=== PATIENT | female | born 1945 | race Caucasian/White ===

== ENCOUNTER 2017-12-17 21:06 | Observation (INO) | payer MEDICARE ==
[~2017-12-17] VITALS: Ht 172.7 cm; Wt 114.0 kg
[~2017-12-17 21:06] MED LIST: AMOXICILLIN/PO500 MG PO; CIPROFLOXACN500 MG PO; CITALOPRAM20 MG PO; CLOPIDOGREL75 MG PO; DIPHEN/ATROP2.5 M1 PO; EXFORGE HC4 PO; GLYBURIDE2.5 MG PO; INDERAL LA120 MG PO; METFORMIN850 MG PO; NEURONTIN300 MG PO; PRAMIPEXOLE0.25 MG PO; PRILOSEC40 MG PO
--- NOTE | 2017-12-17 21:06 | NUR ---
PATIENT TO ROOM 6. UNDRESSED INTO A GOWN. PLACED ON MONITOR. TRIAGE COMPLETED AT BEDSIDE. AWAITING MD CARRILLO.
[2017-12-17] MEDS ORDERED: AMLODIPINE5 MG PO (21:32)
[2017-12-17] MEDS ORDERED: LASIX 40 MG TAB40 MG PO (21:33)
[2017-12-17] MEDS ORDERED: METO50TA52 PO (21:34)
[2017-12-17] MEDS ORDERED: METFORMIN500 M2 PO (21:36)
[2017-12-17] MEDS ORDERED: METFORMIN500 MG PO (21:36)
[2017-12-17] MEDS ORDERED: ENTRESTO 97-1031 TAB PO (21:37)
[2017-12-17] MEDS ORDERED: SERTRALINE50 MG PO (21:37)
--- NOTE | 2017-12-17 21:40 | NUR ---
SPOKE WITH JALEN AT POISON CONTROL. ALL MEDICINES REVIEWED. RECOMMEND CHARCOAL AND IVF TO START. MONITOR BLOOD SUGAR. STATES IF PATIENT BECOMES SYMPTOMATIC WITH BRADYCARDIA OR HYPOTENSION TO CALL BACK WITH SYMPTOMS AND WOULD RECOMMEND FURTHER TREATMENT. MD AWARE OF PLAN AND RECOMMENDATIONS.
[2017-12-17 22:02] LABS: URINE BLOOD DIPSTICK SMALL (NEGATIVE); URINE COLOR YELLOW; URINE GLUCOSE - DIPSTICK 250 mg/dL (NEGATIVE); URINE KETONE 40 mg/dL (NEGATIVE); URINE LEUK ESTERASE NEGATIVE (NEGATIVE); URINE NITRITE - DIPSTICK NEGATIVE (Negative); URINE PH 5.5 (4.5-8.0); URINE PROTEIN - DIPSTICK 30 mg/dL (NEG-TRACE); URINE SPECIFIC GRAVITY >=1.030; URINE UROBILINOGEN - DIPSTICK 0.2 E.U./dL (0.2)
[2017-12-17 22:02] LABS: HEMATOCRIT 44.3 % (37.0-47.0); HEMOGLOBIN 14.4 g/dl (12.0-16.0); IMMATURE GRANULOCYTES 1.3 % (0.0-1.0); MEAN CELL VOLUME 85.5 fL CALC (80.0-100.0); MEAN CORPUSCULAR HGB 27.8 pG CALC (26.0-32.0); MEAN CORPUSCULAR HGB CONC 32.5 g/L CALC (32.0-36.0); NEUT# 5.92 thou/uL (2.00-7.15); RED BLOOD COUNT 5.18 mill/uL (4.20-5.60); RED CELL DISTRI WIDTH 13.8 % (11.5-15.5)
[2017-12-17 22:03] LABS: URINE BILIRUBIN - DIPSTICK NEGATIVE (NEGATIVE); URINE CLARITY CLEAR
--- NOTE | 2017-12-17 22:05 | NUR ---
BS 213
[2017-12-17 22:06] LABS: BARBITURATES NEGATIVE (NEGATIVE); COCAINE NEGATIVE (NEGATIVE); METHADONE NEGATIVE (NEGATIVE); OXCYCODONE NEGATIVE (NEGATIVE); TETRAHYDROCANNABIONOL NEGATIVE (NEGATIVE); TRICYLIC ANTIDEPRESSANTS NEGATIVE (NEGATIVE)
--- NOTE | 2017-12-17 22:10 | NUR ---
NOW AT BEDSIDE. PT DRINKING CHARCOAL.
[2017-12-17 22:11] LABS: URINE SQUAMOUS EPITHELIAL CELL FEW EPI/hpf (0-FEW)
[2017-12-17 22:14] LABS: ALBUMIN 4.3 g/dL (3.2-5.0); ALKALINE PHOSPHATASE 116 u/l (38-126); ANION GAP 13 (6-22 (CALC)); BILIRUBIN, TOTAL 0.4 mg/dL (0.0-1.4); BUN 13 mg/dL (8-23); BUN/CREATININE RATIO 17 (12-20 (CALC)); CARBON DIOXIDE 26 mmol/l (22-30); CHLORIDE 104 mmol/l (95-108); CREATININE 0.8 mg/dL (0.5-1.0); ETHYL ALCOHOL 0 mg/dl (0-30); GFR > 60 ML/MIN (>=60 (CALC)); GFR FOR AFR.AMER. > 60 ML/MIN (>=60 (CALC)); MAGNESIUM 1.9 mg/dL (1.6-2.3); SGOT/AST 46 u/l (9-36); SGPT/ALT 52 u/l (11-66); SODIUM 139 mmol/l (137-146); TOTAL PROTEIN 7.1 g/dL (6.3-8.2)
--- NOTE | 2017-12-17 22:30 | NUR ---
AT BEDSIDE TO ADVISE PT AND OF PLAN OF CARE/BA-52.
--- NOTE | 2017-12-17 22:40 | NUR ---
SPOKE WITH JALEN AT POISON CONTROL. LAB RESULTS REVIEWED AND UPDATED ON PATIENT STATUS AND VITALS. RECCOMENDS OVERNIGHT ADMISSION WITH TELE, CONTINUE TO MONITOR. AWARE.
--- NOTE | 2017-12-17 23:03 | NUR ---
REPORT TO DEWAYNE CARLISLE, ICU.
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
[2017-12-17 23:30] VITALS: BP 146/80
[2017-12-17 23:45] VITALS: BP 168/73
[2017-12-18] VITALS (10 sets, daily range): BP systolic 95–195; BP diastolic 36–82
--- NOTE | 2017-12-18 02:00 | NUR ---
eyes closed. no distress. surveillance system monitor shows sinus rhythm pvcs.
--- NOTE | 2017-12-18 02:30 | NUR ---
dallas from poison control called this ghost writer. updated on pts condition. requested accucheck. put on hold. accucheck 260. [place] notified.
--- NOTE | 2017-12-18 03:00 | NUR ---
up to bsc. voided well. no c/o voiced.
--- NOTE | 2017-12-18 06:00 | NUR ---
eyes closed. no distress. environmental monitoring specialist shows sinus rhythm pvcs.
--- NOTE | 2017-12-18 08:15 | NUR ---
PT REFUSED ALL MEDICATIONS
--- NOTE | 2017-12-18 11:05 | NUR ---
DR HARTMAN AT BEDSIDE DISCUSSING PLAN OF CARE
--- NOTE | 2017-12-18 11:07 | NUR ---
SPOUSE AT BEDSIDE
--- NOTE | 2017-12-18 11:30 | NUR ---
SETUP ASSISTANCE PROVIDED WITH LUNCH TRAY
--- NOTE | 2017-12-18 11:45 | NUR ---
PT STATED, "I AM NOT GOING TO COOPERATE WITH THE STAFF AT THE [facility].", PT ENCOURAGED TO COOPERATE WITH STAFF TO GAIN THE BEST OUTCOME UPON DISCHARGE, PT VERBALIZED UNDERSTANDING
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
--- NOTE | 2017-12-18 13:30 | NUR ---
MARIN FROM [facility] CALLED REQUESTING SOME INFO ON PT, INFO GIVEN TO SRAVANTHI FUNES ACCEPTED PT UNDER DR RUTHY MCCORD'S CARE
--- NOTE | 2017-12-18 13:44 | NUR ---
CALL PLACED TO [facility] SPOKE TO C18, GAVE PT INFO, DEPUTY WILL COME TO TRANSPORT PT SOON AVAILABLE
--- NOTE | 2017-12-18 14:15 | NUR ---
Discharge instructions given. Patient verbalizes understanding of same. Discharged in stable condition via Ambulatory to [facility] with 2 [facility] deputies. All belongings sent with pt.
== END 2017-12-18 14:15 | disposition designated cancer center or children's hospital (05) ==
LOC: ED 21:06 → ED-I 22:33 → ED 22:52 → ICU 22:53
PROVIDERS: Emergency Medicine; ADMIT Internal Medicine; ATTEND Internal Medicine
DX: T44.7X2A Poisoning by beta-adrenoreceptor antagonists, intentional self-harm, initial encounter (principal); T46.1X2A Poisoning by calcium-channel blockers, intentional self-harm, initial encounter; T42.6X2A Poisoning by other antiepileptic and sedative-hypnotic drugs, intentional self-harm, initial encounter; T43.222A Poisoning by selective serotonin reuptake inhibitors, intentional self-harm, initial encounter; E11.9 Type 2 diabetes mellitus without complications; F32.9 Major depressive disorder, single episode, unspecified; I11.0 Hypertensive heart disease with heart failure; I50.9 Heart failure, unspecified; Y92.009 Unspecified place in unspecified non-institutional (private) residence as the place of occurrence of the external cause

== ENCOUNTER 2021-06-05 01:58 | Observation (INO) | payer MEDICARE ==
[~2021-06-05] VITALS: Ht 172.7 cm; Wt 107.0 kg
[~2021-06-05 01:58] MED LIST changes: +AMLODIPINE5 MG PO; +DULOXETINE HCL40 MG PO; +ENTRESTO 97-1031 TAB PO; +LASIX 40 MG TAB40 MG PO; +METFORMIN500 M2 PO; +METFORMIN500 MG PO; +METO50TA52 PO; +SERTRALINE50 MG PO; +TRULICITY0.75 MG/0. IM
[2021-06-05 02:20] LABS: GFR > 60 ML/MIN (>=60 (CALC)); GFR FOR AFR.AMER. > 60 ML/MIN (>=60 (CALC))
[2021-06-05 02:36] LABS: ALBUMIN 4.4 g/dL (3.2-5.0); ALKALINE PHOSPHATASE 139 u/l (38-126); ANION GAP 14 (6-22 (CALC)); BILIRUBIN, TOTAL 0.6 mg/dL (0.0-1.4); BUN 11 mg/dL (8-23); BUN/CREATININE RATIO 19 (12-20 (CALC)); CARBON DIOXIDE 28 mmol/l (22-30); CHLORIDE 102 mmol/l (95-108); CREATININE 0.6 mg/dL (0.5-1.0); GFR > 60 ML/MIN (>=60 (CALC)); GFR FOR AFR.AMER. > 60 ML/MIN (>=60 (CALC)); POTASSIUM 4.2 mmol/l (3.5-5.1); SGOT/AST 23 u/l (9-36); SODIUM 139 mmol/l (137-146); TOTAL PROTEIN 7.6 g/dL (6.3-8.2)
[2021-06-05 02:53] LABS: HEMATOCRIT 45.7 % (37.0-47.0); HEMOGLOBIN 15.1 g/dl (12.0-16.0); IMMATURE GRANULOCYTES 0.2 % (0.0-5.0); MEAN CELL VOLUME 82.8 fL CALC (80.0-100.0); MEAN CORPUSCULAR HGB 27.4 pG CALC (26.0-32.0); NEUT# 4.34 thou/uL (2.00-7.15); RED BLOOD COUNT 5.52 mill/uL (4.20-5.60); RED CELL DISTRI WIDTH 13.6 % (11.5-15.5)
[2021-06-05 03:00] LABS: URINE BILIRUBIN - DIPSTICK NEGATIVE (NEGATIVE); URINE BLOOD DIPSTICK NEGATIVE (NEGATIVE); URINE GLUCOSE - DIPSTICK NEGATIVE (NEGATIVE); URINE KETONE NEGATIVE (NEGATIVE); URINE LEUK ESTERASE TRACE (NEGATIVE); URINE PROTEIN - DIPSTICK NEGATIVE (NEG-TRACE); URINE SPECIFIC GRAVITY <=1.005; URINE UROBILINOGEN - DIPSTICK 0.2 E.U./dL (0.2)
[2021-06-05 03:01] LABS: URINE COLOR COLORLESS; URINE NITRITE - DIPSTICK NEGATIVE (Negative)
[2021-06-05 03:11] LABS: ACT PARTIAL THROMBO TIME 24.5 SECONDS (20.0-32.5); INTERNATIONAL NORMALIZED RATIO 0.9 RATIO (0.7-1.3); PROTHROMBIN TIME 9.8 SECONDS (9.0-12.5)
[2021-06-05] MEDS ORDERED: GABAPENTIN100 MG PO (04:12)
[2021-06-05] MEDS ORDERED: CRESTOR10 MG PO (04:16)
[2021-06-05] MEDS ORDERED: DOXEPIN HCL10 MG PO (04:17)
[2021-06-05] MEDS ORDERED: TIZANIDINE4 MG PO (04:19)
[2021-06-05] MEDS ORDERED: LEVEMIR FL100 UNIT/M SC ×2 (04:20→04:21)
[2021-06-05 05:00] VITALS: BP 138/71
[2021-06-05 07:40] VITALS: BP 103/61
[2021-06-05 10:18] VITALS: BP 129/62
[2021-06-05 10:25] VITALS: BP 129/62
== END 2021-06-05 13:40 | disposition home or self-care (01) ==
LOC: ED 01:58 → MS2 03:27 → ED 03:35 → ED-I 04:11 → ED 04:11 → ED-I 04:20 → ED 04:20 → MS2 04:21 → ED 06-07 07:52
PROVIDERS: Family Medicine; ADMIT Hospitalist; ATTEND Hospitalist
DX: G45.9 Transient cerebral ischemic attack, unspecified (principal); I11.0 Hypertensive heart disease with heart failure; I50.9 Heart failure, unspecified; E11.9 Type 2 diabetes mellitus without complications; F32.A Depression, unspecified; F40.240 Claustrophobia; T39.016A Underdosing of aspirin, initial encounter; Z91.128 Patient's intentional underdosing of medication regimen for other reason; Z79.84 Long term (current) use of oral hypoglycemic drugs; Z86.73 Personal history of transient ischemic attack (TIA), and cerebral infarction without residual deficits; Z20.822 Contact with and (suspected) exposure to COVID-19
CPT/HCPCS: G0378; J1650; Q9967